=== PATIENT | female | born 1995 | race Caucasian/White ===

== ENCOUNTER 2021-02-15 04:00 | Inpatient (IN) ==
[2021-02-15] MEDS ORDERED: Metoclopramide 10 MG/2 ML VIAL IVP PRN (04:19)
[2021-02-15] MEDS ORDERED: Lidocaine 1% 20 ML MDV INFILT PRN (04:19)
[2021-02-15] MEDS ORDERED: Naloxone 0.4 MG/ML INJ IVP PRN (04:19)
[2021-02-15] MEDS ORDERED: Famotidine 20 MG/2 ML VIAL IVP PRN (04:19)
[2021-02-15] MEDS ORDERED: miSOPROStoL 25 MCG TABLET PO PRN (04:19)
[2021-02-15] MEDS ORDERED: Ondansetron 4 MG/2 ML VIAL IVP PRN (04:19)
[2021-02-15] MEDS ORDERED: Oxytocin 20 units/ LR 1000 mL 20 UNIT/1,000 ML BAG IVC SCH ×2 (04:30→18:01)
[2021-02-15 05:04] LABS: Basophils # 0.1 K/mcL (0.0-0.2); Basophils % 0.4 %; Eosinophils # 0.4 K/mcL (0.0-0.6); Eosinophils % 2.1 %; Hematocrit 35.8 % (35.3-44.9); Hemoglobin 12.6 g/dL (11.5-15.4); Lymphocytes # 2.5 K/mcL (0.6-4.6); Lymphocytes % 12.6 %; Mean Corpuscular HGB Conc 35.2 g/dL (31.6-35.5); Mean Corpuscular Hemoglobin 30.5 pg (28.0-33.3); Mean Corpuscular Volume 86.7 fL (83.0-100.0); Mean Platelet Volume 10.3 fL (9.4-12.4); Monocytes % 4.8 %; Platelet Count 342 K/mcL (140-400); Red Blood Count 4.13 M/mcL (3.82-4.97); Red Cell Distribution Width 12.5 % (11.5-14.5); Segmented Neutrophils % 79.1 %; White Blood Count 20.2 K/mcL (4.3-11.1)
[2021-02-15 05:05] LABS: Amphetamine Screen,Urine Negative ng/mL (Cutoff=1000); Barbiturate Screen,Urine Negative ng/mL (Cutoff=200); Benzodiazepines Screen,Urine Negative ng/mL (Cutoff=200); Cannabinoid Screen,Urine Negative ng/mL (Cutoff = 50); Cocaine Screen,Urine Negative ng/mL (Cutoff= 300); Opiate Screen,Urine Negative ng/mL (Cutoff=300); Phencyclidine Screen,Urine Negative ng/mL (Cutoff=25)
[2021-02-15 05:42] LABS: Influenza A PCR Negative (Negative); Influenza B PCR Negative (Negative); Resp. Syncytial Virus PCR Negative (Negative)
[2021-02-15 05:44] LABS: SARS-CoV-2 by PCR (In House) Negative (Negative)
[2021-02-15] MEDS: *HR* Nalbuphine 10 MG/ML AMPUL IV PRN ×2 (07:59→10:11)
[2021-02-15] MEDS ORDERED: EPHEDrine 50 MG/ML VIAL IVP PRN (09:35)
[2021-02-15] MEDS ORDERED: Epidural Premix (fent/bupiv) 110 ML EP SCH (09:45)
[2021-02-15] MEDS: Ringers Solution, Lactated 1,000 ML IVC SCH ×2 (10:12→11:07)
[2021-02-15] MEDS ORDERED: Benzocaine/Menthol 56 GM AEROSOL SPRAY TP PRN (18:01)
[2021-02-15] MEDS ORDERED: Ondansetron ODT 4 MG TAB.RAPDIS SL PRN (18:01)
[2021-02-15] MEDS ORDERED: Measles/Mumps/Rubella Vacc 0.5 ML VIAL SQ PRN (18:01)
[2021-02-15] MEDS ORDERED: Lanolin 7 G OINT...G. TP PRN (18:01)
[2021-02-15] MEDS ORDERED: Rho Immune Globulin 1,500 UNIT SYRINGE IM PRN (18:01)
[2021-02-15] MEDS: Acetaminophen 325 MG TABLET PO SCH (18:25)
[2021-02-15] MEDS: Ibuprofen 600 MG TABLET PO SCH (19:58)
[2021-02-16] MEDS: Acetaminophen 325 MG TABLET PO SCH ×3 (00:54→16:40)
[2021-02-16 05:10] LABS: Basophils # 0.1 K/mcL (0.0-0.2); Basophils % 0.4 %; Eosinophils # 0.3 K/mcL (0.0-0.6); Eosinophils % 1.3 %; Hematocrit 37.2 % (35.3-44.9); Hemoglobin 12.7 g/dL (11.5-15.4); Immature Granulocytes % 0.8 % (0-4); Lymphocytes # 2.2 K/mcL (0.6-4.6); Lymphocytes % 10.5 %; Mean Corpuscular HGB Conc 34.1 g/dL (31.6-35.5); Mean Corpuscular Volume 87.9 fL (83.0-100.0); Mean Platelet Volume 10.2 fL (9.4-12.4); Monocytes # 1.1 K/mcL (0.0-1.3); Neutrophils # 17.4 K/mcL (1.6-8.9); Platelet Count 305 K/mcL (140-400); Red Blood Count 4.23 M/mcL (3.82-4.97); Red Cell Distribution Width 12.6 % (11.5-14.5); White Blood Count 21.2 K/mcL (4.3-11.1)
[2021-02-16 05:51] VITALS: BP 92/56; TEMP 98.1; O2SAT 100
[2021-02-16] MEDS: Ibuprofen 600 MG TABLET PO SCH ×2 (08:01→16:40)
[2021-02-16] MEDS ORDERED: Prenatal Vit/FA 1 EACH TABLET PO SCH (09:00)
[2021-02-16 16:16] VITALS: PULSE 70
== END 2021-02-16 17:10 | disposition home or self-care (01) | DRG 807 ==
LOC: 1NENULAB 04:16 → 1NENUOBS 19:58
PROVIDERS: ADMIT Obstetrics & Gynecology; ATTEND Obstetrics & Gynecology